=== PATIENT | male | born 1990 ===

== ENCOUNTER 2018-05-26 19:16 | Emergency (ER) | payer OTHER ==
[~2018-05-26] VITALS: Ht 172.1 cm; Wt 74.9 kg
[2018-05-26 22:18] LABS: PLATELET COUNT 236 K/uL (142-355)
[2018-05-26 22:31] LABS: POTASSIUM 3.7 mmol/L (3.6-5.2)
[2018-05-26 23:00] VITALS: BP 109/57; TEMP 98.5
== END 2018-05-26 23:05 | disposition home or self-care (01) ==
LOC: ED 19:16
PROVIDERS: Internal Medicine
DX: R10.31 Right lower quadrant pain (principal); S39.001A Unspecified injury of muscle, fascia and tendon of abdomen, initial encounter
CPT/HCPCS: 80053; 81000; 85027; 87088; 99283